=== PATIENT | male | born 1950 | race African-American/Black ===

== ENCOUNTER 2022-02-26 14:53 | Inpatient (IN) | payer OTHER ==
[~2022-02-26] VITALS: Ht 175.3 cm; Wt 66.7 kg
[2022-02-26] MEDS ORDERED: ACETAMINOPHEN 650 MG SUPP RC ONE (14:58)
[2022-02-26] MEDS ORDERED: NACL 0.9% 500 ML IV SCH (15:10)
[2022-02-26 15:11] VITALS: BP 119/72
[2022-02-26] MEDS ORDERED: ALBUTEROL SULFATE/IPRATROPIU 3 ML SOL IH ONE (15:25)
[2022-02-26] MEDS ORDERED: methylPREDNISolone SS 125 MG/2 ML VIAL IVP ONE (15:25)
--- NOTE | 2022-02-26 15:50 | NUR ---
ABIDA AND FLU SWABS COLLECTED AND HANDED TO LOCK TENDER
[2022-02-26 15:59] LABS: BASOPHILS % (AUTO) 0.1 % (0.0-2.0); EOSINOPHILS % (AUTO) 0.3 % (0.0-4.0); HEMATOCRIT 34.2 % (36-52); HEMOGLOBIN 10.5 g/dL (12.0-18.0); LYMPHOCYTES # (AUTO) 0.4 K/uL (2.0-11.5); LYMPHOCYTES % (AUTO) 9.1 % (20.5-51.1); MEAN CORPUSCULAR HEMOGLOBIN 30 pg (27-31); MEAN CORPUSCULAR HGB CONC 31 g/dL (33-37); MEAN CORPUSCULAR VOLUME 95.8 fL (80-94); MONOCYTES % (AUTO) 0.4 % (1.7-9.3); NEUTROPHILS # (AUTO) 3.5 K/uL (1.8-7.7); NEUTROPHILS % (AUTO) 90.1 % (42.2-75.2); PLATELET COUNT (AUTO) 149 K/uL (140-450); RED BLOOD CELL COUNT(AUTO) 3.57 MIL/uL (4.20-6.10); RED CELL DISTRIBUTION WIDTH 16.6 % (11.6-13.7); WHITE BLOOD COUNT (AUTO) 3.9 K/uL (4.8-10.8)
[2022-02-26 16:21] LABS: ALBUMIN 2.2 g/dL (3.4-5.0); ASPARTATE AMINOTRANSFERASE 50 U/L (15-37); CARBON DIOXIDE 24.2 mmol/L (21-32); CREATININE 2.9 mg/dL (0.6-1.3); GLUCOSE 90 mg/dL (74-106); TOTAL BILIRUBIN 0.7 mg/dL (0.0-1.0); UREA NITROGEN, BLOOD 46 mg/dL (7-18)
[2022-02-26 16:23] LABS: APPEARANCE,URINE SL CLOUDY (CLEAR); BILIRUBIN,URINE NEGATIVE (NEGATIVE); BLOOD, URINE 3+ (NEGATIVE); COLOR,URINE ORANGE (YELLOW); LEUKOCYTE ESTERASE ,URINE 3+ (NEGATIVE); NITRITE, URINE NEGATIVE (NEGATIVE); UGLUCOSE NEGATIVE (NEGATIVE)
[2022-02-26 16:25] LABS: PROTHROMBIN TIME 13.5 secs (10.8-13.4)
[2022-02-26 16:38] LABS: RBC,URINE 20-50 /HPF (0-5)
[2022-02-26] MEDS ORDERED: PIPERACILLIN/TAZOBACTAM 3.375 GM in DEXTROSE 5% 50 ML IV ONE (16:45)
[2022-02-26] MEDS ORDERED: VANCOMYCIN 1,000 MG in DEXTROSE 5% 250 ML IV ONE (16:45)
--- NOTE | 2022-02-26 16:45 | NUR ---
PER DR. ORIANA ALMEIDA TO NOT BE CHANGED
[2022-02-26 16:51] LABS: CHLORIDE 119 mmol/L (98-107); POTASSIUM 3.4 mmol/L (3.5-5.1)
[2022-02-26 16:53] LABS: ANION GAP 22.2 (8-16); SODIUM SERUM 162 mmol/L (136-145)
[2022-02-26] MEDS ORDERED: PIPERACILLIN/TAZOBACTAM 3.375 GM VIAL IV ONE (16:55)
--- NOTE | 2022-02-26 17:30 | NUR ---
71/M ABI FROM [facility]. PER EMS STAFF CALLED 911 STATING PATIENT SOB, STATING 80% ON ROOM AIR. PER EMS PATIENT PLACED ON 10L NON REBREATHER BRINGING O2 SATS TO 98%. PATIENT ON ROOM AIR AT BASELINE, UPON ARRIVAL PATIENT PLACED ON 4L NC, O2 96%.
[2022-02-26] MEDS ORDERED: VANCOMYCIN 1,000 MG VIAL ONE (17:32)
[2022-02-26] MEDS ORDERED: MEDI30SO PO (18:02)
[2022-02-26] MEDS ORDERED: [UNRECOGNIZED DRUG - CODE] (18:02)
[2022-02-26] MEDS ORDERED: CHOL1POW67 (18:02)
[2022-02-26] MEDS ORDERED: L. A1TAB16 PO (18:02)
[2022-02-26] MEDS ORDERED: SENN-3 PO (18:02)
[2022-02-26] MEDS ORDERED: ASCO500T95 PO (18:02)
[2022-02-26] MEDS ORDERED: ATOR40TA PO (18:02)
[2022-02-26] MEDS ORDERED: MIRABULK PO (18:02)
[2022-02-26] MEDS ORDERED: ALBU3SOL83 IH (18:02)
[2022-02-26] MEDS ORDERED: ASPI-1749 PO (18:02)
[2022-02-26] MEDS ORDERED: MULT-2611 PO (18:02)
[2022-02-26] MEDS ORDERED: VITB12 PO (18:02)
[2022-02-26] MEDS ORDERED: ACET-10509 PO (18:02)
--- NOTE | 2022-02-26 19:00 | NUR ---
PT TRANSPORTED FROM ER TO MST UNIT TO BED 123B ON [facility]. PT IS NONVERBAL. PT IS CONTRACTED ON ALL EXTREMITIES. PT IS ON 4L NC PT IS SATING 96%. PT HAS RIGHT AC 20 GAUGE SALINE LOCK. PT HAS WOUND ON RIGHT FOOT.
--- NOTE | 2022-02-26 19:00 | NUR ---
Patient will be admitted to care of DR. SHIELDS. Admited to TELE. Will go to room 123B. Belongings list completed. Report to TAHIR.
--- NOTE | 2022-02-26 19:18 | NUR ---
Note dipak in EDM - 02/26/22 at 1919 by BECKIE Patient will be admitted to care of DR. SHIELDS. Admited to TELE. Will go to room 123B. Belongings list completed. Report to TAHIR.
[2022-02-26 20:00] VITALS: BP 121/61
--- NOTE | 2022-02-26 23:45 | NUR ---
PT WAS CLEANED AND CHANGED. PT HAD SMALL BM.
[2022-02-27] VITALS: BP 127/67
[2022-02-27] MEDS ORDERED: NACL 0.9% 1,000 ML IV SCH (02:00)
[2022-02-27] MEDS ORDERED: VANCOMYCIN PER PHARMACY MC PRN (02:00)
[2022-02-27] MEDS ORDERED: HYDROcodone/APAP 5/325 MG 1 TAB TAB PO PRN (02:10)
--- NOTE | 2022-02-27 02:21 | NUR ---
DOCTOR PUT IN NEW ORDERS AND IVF STARTED AT 50 CC/HR.
[2022-02-27 04:00] VITALS: BP 140/65
[2022-02-27] MEDS ORDERED: PIPERACILLIN/TAZOBACTAM 2.25 GM VIAL IV ONE (04:35)
[2022-02-27] MEDS: PIPERACILLIN/TAZOBACTAM 2.25 GM in DEXTROSE 5% 50 ML IV SCH ×4 (04:41→21:44)
--- NOTE | 2022-02-27 04:45 | NUR ---
SCHEDULE ZOSYN GIVEN. NO ADVERSE REACTION NOTED. WILL CONTINUE TO MONITOR THE PT.
[2022-02-27] MEDS ORDERED: PIPERACILLIN/TAZOBACTAM 3.375 GM in DEXTROSE 5% 50 ML IV SCH (05:00)
[2022-02-27 05:33] LABS: BASOPHILS % (AUTO) 0.1 % (0.0-2.0); HEMATOCRIT 30.9 % (36-52); HEMOGLOBIN 9.7 g/dL (12.0-18.0); LYMPHOCYTES # (AUTO) 0.9 K/uL (2.0-11.5); LYMPHOCYTES % (AUTO) 3.7 % (20.5-51.1); MEAN CORPUSCULAR HEMOGLOBIN 29 pg (27-31); MEAN CORPUSCULAR HGB CONC 31 g/dL (33-37); MEAN CORPUSCULAR VOLUME 93.2 fL (80-94); MONOCYTES # (AUTO) 0.6 K/uL (0.8-1.0); MONOCYTES % (AUTO) 2.2 % (1.7-9.3); NEUTROPHILS # (AUTO) 23.3 K/uL (1.8-7.7); PLATELET COUNT (AUTO) 137 K/uL (140-450); RED BLOOD CELL COUNT(AUTO) 3.32 MIL/uL (4.20-6.10); RED CELL DISTRIBUTION WIDTH 15.4 % (11.6-13.7); WHITE BLOOD COUNT (AUTO) 24.8 K/uL (4.8-10.8)
[2022-02-27 05:39] LABS: ANION GAP 15.1 (8-16); CARBON DIOXIDE 28.7 mmol/L (21-32); CHLORIDE 122 mmol/L (98-107); CREATININE 2.6 mg/dL (0.6-1.3); GLUCOSE 150 mg/dL (74-106); POTASSIUM 3.8 mmol/L (3.5-5.1); UREA NITROGEN, BLOOD 53 mg/dL (7-18)
[2022-02-27 05:42] LABS: SODIUM SERUM 162 mmol/L (136-145)
--- NOTE | 2022-02-27 07:28 | NUR ---
ENDORSED PT TO DAY SHIFT RN ADZ FOR CONTINUITY OF CARE. PT IS STABLE.
[2022-02-27 08:00] VITALS: BP 111/69
--- NOTE | 2022-02-27 09:36 | NUR ---
PATIENT HAS BEEN SCREENED AND CATEGORIZED HIGH NUTRITION RISK. PATIENT WILL BE SEEN WITHIN 1-2 DAYS OF ADMISSION. 02/27/2211/23/22 CONSULT AND REFERRAL RECEIVED FOR WOUNDS/PRESSURE INJURY AND DYSPHAGIA DALIA KNOX RD
[2022-02-27] MEDS: DEXTROSE 5% 1,000 ML IV SCH (11:35)
[2022-02-27 12:00] VITALS: BP 141/70
[2022-02-27] MEDS ORDERED: NACL 0.9% 500 ML IV ONE (12:10)
--- NOTE | 2022-02-27 12:50 | NUR ---
WOUND CARE NOTE: PT. ADMITTED FROM SNF WITH MULTIPLE PRESSURE INJURIES TO BILATERAL FEET. BLE SEVERE CONTRACTURE WITH MULTIPLE SCABS.SKIN WARM TO TOUCH. INCONTINENT BOWEL AND BLADDER. SACRALCOCCYX MOIST, SKIN INTACT, DARK PIGMENTATION POSSIBLE FROM OLD HEALED SCAR. LEFT AND RIGHT TROCHANTERS OLD HEALED INTACT SCARS -LEFT LATERAL FOOT UN-STAGEABLE PRESSURE INJURY 3X4X0.2CM WOUND BED 100% BLACK WITH DENUDED OPEN WOUND BED, MOIST, NO ODOR, JESSICA-WOUND SKIN DARK PURPLE IN COLOR, FURTHER DAMAGE INDICATED. -RIGHT LATERAL FOOT UN-STAGEABLE PRESSURE INJURY 3X3X0.5CM TUNNEL WOUND BED 100% BLACK MOIST TISSUE, MOIST, NO ODOR, JESSICA-WOUND SKIN WHITE MACERATION FURTHER DAMAGE INDICATED. -BILATERAL HEELS BLANCHABLE REDNESS SKIN INTACT RECOMMENDATIONS: -APPLY HYDRAGUARD TO BUTTOCKS /SCROTAL AREA BID AND PRN IF SOILING -CLEANSE RIGHT AND LEFT LATERAL FEET WOUND WITH NS. PAT DRY, APPLY HYDROCOLLOID DRESSING 2X/WEEK ON SATURDAY AND SATURDAY AND PRN IF SOILING, HEEL RAISERS WITH OFFLOADING -APPLY FOAM DRESSING TO SACRALCOCCYX QD AND PRN IF SOILING -POSITIONING: TURN AND REPOSITION PATIENT Q 2H OR SOONER USE PILLOWS TO KEEP BONY PROMINENCES FROM DIRECT CONTACT WITH SURFACES USE REPOSITIONING WEDGES TO PROVIDE 30-DEGREE ANGLE FOR SIDE LYING POSITIONS OFFLOADING OR FOAM DRESSING TO ALL TUBING TO PREVENT MEDICAL DEVICES RELATED PRESSURE INJURY -RE-EVALUATING AND MANAGING INCONTINENCE MONITOR SKIN CONDITION DURING POSITION CHANGE DO NOT MASSAGE REDNESS, BONY PROMINENCES FREQUENT JESSICA-CARE AND PROVIDE BARRIER CREAMS PRN IF SOILING MOISTURE CONTROL BY OFFER BED JJ/URINAL /ABSORBENT PAD TO WICK AND HOLD MOISTURE. MAY OBTAIN ORDER FOR FLEX SEAL, RECTAL BAG OR ALMEIDA CATHETER PER PHYSICIAN ORDER UNLESS OTHERWISE CONTRAINDICATED KEEP SKIN DRY AND PROTECT FROM FRICTION -MANAGE FRICTION/SHEAR/MOBILITY KEEP HOB AT THE LOWEST LEVEL OF ELEVATION NO MORE THAN 30 DEGREES UNLESS OTHERWISE CONTRAINDICATED USE LIFT SHEET OR TRANSFER DEVICE TO MOVE PATIENT AND PREVENT LATERAL SHEER. CONSIDER TRAPEZE IF APPROPRIATE PROTECT HEELS, ELBOWS BONY PROMINENCES WITH SKIN BERRIES OR FOAM DRESSING IF EXPOSED TO FRICTION OFFLOAD BILATERAL HEELS BY PLACING PILLOWS UNDER CALVES AT ALL TIMES, UNLESS OTHERWISE CONTRAINDICATED -PRESSURE REDISTRIBUTION SURFACE THERAPY PUNEET ISOFLEX JOEL MATTRESS -NUTRITION: PLEASE FOLLOW RD RECOMMENDATIONS AND OFFER NUTRITION SUPPLEMENTS IF ORDERED.
[2022-02-27] MEDS ORDERED: HYDROCOLLOID DRESSING TP PRN (14:50)
--- NOTE | 2022-02-27 15:08 | NUR ---
DC PLANNING OUTREACHED TO [facility] TO GATHER COLLATERAL INFORMATION, SPOKE WITH QUINN BRODERICK. MEGGAN OCONNOR PATIENT IS IN RETIREMENT CARE W/ FACILITY, ADMISSION DATE; 06/21/21. PT IS REPORTED TO BE BEDBOUND AND TOTAL CARE AT FACILITY HOWEVER, OCCASIONALLY UTILIZES WC. MEGGAN OCONNOR PT IS NON VERBAL. MEGGAN OCONNOR PT HAS ACTIVE FAMILY INVOLVEMENT AND REPORTS THAT HIS DAUGHTER VISITS AND VIDEO CALLS WITH PT FREQUENTLY. PT FAMILY IS AWARE PT IS CURRENTLY ADMITTED TO [facility]. MEGGAN OCONNOR PT IS FOLLOWED BY DR. FELICIANO AT FACILITY. MEGGAN OCONNOR CA PLAN IS FOR PT TO RETURN TO [facility], WHEN MEDIALLY STABLE. Addendum: 02/27/22 at 1508 by Jen COVINGTON Amended: Links added.
--- NOTE | 2022-02-27 15:53 | NUR ---
02/27/22 RD INITIAL ASSESSMENT COMPLETED PLEASE REFER TO NUTRITION ASSESSMENT UNDER CARE ACTIVITY FOR ESTIMATED NUTRITIONAL NEEDS. 1. RECOMMEND ADDING RENAL RESTRICTIONS TO CURRENT CARDIAC, PUREE DIET WITH HONEY THICK LIQUIDS 2. MONITOR PO INTAKE -IF <75%, RECOMMEND NEPRO BID FOR NUTRITION SUPPORT 3. RD TO FOLLOW-UP 7 DAYS, LOW RISK DALIA KNOX RD
[2022-02-27 16:00] VITALS: BP 110/65
[2022-02-27] MEDS ORDERED: HYDROCOLLOID DRESSING TP SCH ×2 (16:00)
[2022-02-27] MEDS ORDERED: ALBUTEROL SULFATE/IPRATROPIU 3 ML SOL IH SCH (16:55)
[2022-02-27] MEDS ORDERED: SENNA 8.6 MG TAB PO SCH (16:55)
--- NOTE | 2022-02-27 19:10 | NUR ---
RECEIVED REPORT FROM DAY NURSE. PATIENT LYING ON THE BED ON HIS RIGHT SIDE, FLACC 0, ON O2 @3LPM NC, NO SIGNS OF DISTRESS NOTED. IV ACCESS SITE ON RIGHT AC G20, FLUSH WITHOUT DIFFICULTY. SAFETY PRECAUTIONS IN PLACE. WILL CONTINUE TO MONITOR PATIENT.
[2022-02-27 20:00] VITALS: BP 98/56
[2022-02-27] MEDS: ATORVASTATIN 20 MG TAB PO SCH (21:29)
--- NOTE | 2022-02-27 21:35 | NUR ---
DUE MEDICATIONS GIVEN ORDERED, WILL CONTINUE TO MONITOR THE PATIENT.
--- NOTE | 2022-02-27 23:09 | NUR ---
PATIENT IS ASLEEP, HOB ELEVATED, ON O2 @3LPM NC, BREATHING EVEN AND NON LABORED, SAFETY PRECAUTIONS MAINTAINED, CALL LIGHT WITHIN REACH.
[2022-02-28] VITALS: BP 102/64
[2022-02-28] MEDS: DEXTROSE 5% 1,000 ML IV SCH ×2 (00:05→13:21)
--- NOTE | 2022-02-28 00:33 | NUR ---
PATIENT IS ASLEEP. VITALS T 98.0, HR 82, BP 102/64, RESP 19, O2 SAT 96% ON 3LPM NC. NO S/S OF PAIN/DISCOMFORT NOTED, NO S/S OF DISTRESS NOTED. CALL LIGHT WITHIN REACH. WILL CONTINUE TO MONITOR PATIENT.
[2022-02-28] MEDS: HYDRAGUARD CREAM TP SCH ×2 (01:49→13:21)
--- NOTE | 2022-02-28 03:06 | NUR ---
PT WAS REPOSITION AND WOUND DRESSING CHANGED.
[2022-02-28 04:00] VITALS: BP 100/66
[2022-02-28] MEDS ORDERED: MEROPENEM 500 MG VIAL IV ONE (04:27)
[2022-02-28] MEDS: MEROPENEM 500 MG in NACL 0.9% 50 ML IV SCH ×3 (04:32→20:25)
[2022-02-28 06:02] LABS: BASOPHILS % (AUTO) 0.1 % (0.0-2.0); EOSINOPHILS % (AUTO) 0.1 % (0.0-4.0); HEMATOCRIT 27.8 % (36-52); HEMOGLOBIN 8.8 g/dL (12.0-18.0); LYMPHOCYTES # (AUTO) 1.7 K/uL (2.0-11.5); LYMPHOCYTES % (AUTO) 8.4 % (20.5-51.1); MEAN CORPUSCULAR HEMOGLOBIN 29 pg (27-31); MEAN CORPUSCULAR HGB CONC 32 g/dL (33-37); MEAN CORPUSCULAR VOLUME 93.2 fL (80-94); MONOCYTES # (AUTO) 0.9 K/uL (0.8-1.0); MONOCYTES % (AUTO) 4.6 % (1.7-9.3); NEUTROPHILS % (AUTO) 86.8 % (42.2-75.2); PLATELET COUNT (AUTO) 125 K/uL (140-450); RED BLOOD CELL COUNT(AUTO) 2.98 MIL/uL (4.20-6.10); RED CELL DISTRIBUTION WIDTH 15.4 % (11.6-13.7); WHITE BLOOD COUNT (AUTO) 19.6 K/uL (4.8-10.8)
[2022-02-28 06:23] LABS: ANION GAP -8.6 (8-16); CARBON DIOXIDE 27.5 mmol/L (21-32); CHLORIDE 122 mmol/L (98-107); GLUCOSE 104 mg/dL (74-106); SODIUM SERUM 138 mmol/L (136-145)
[2022-02-28 06:29] LABS: MAGNESIUM 2.5 mg/dL (1.8-2.4); PHOSPHORUS 2.9 mg/dL (2.5-4.9)
[2022-02-28 06:34] LABS: POTASSIUM 2.9 mmol/L (3.5-5.1)
[2022-02-28 06:35] LABS: UREA NITROGEN, BLOOD 63 mg/dL (7-18)
[2022-02-28] MEDS ORDERED: KCL 20 MEQ/WATER INJ PREMIX 200 ML IV PRN (06:50)
--- NOTE | 2022-02-28 07:18 | NUR ---
ENDORSED PATIENT TO DAY NURSE FOR CONTINUITY OF CARE. PATIENT IS STABLE.
[2022-02-28 08:00] VITALS: BP 108/62
--- NOTE | 2022-02-28 08:00 | NUR ---
RECEIVED PATIENT IN BED, NON VERBAL. NOT IN ANY FORM OF DISTRESS. ASSESSMENT DONE AND DOCUMENTED. WILL CONTINUE TO MONITOR.
[2022-02-28] MEDS: ASPIRIN 81 MG TAB.CHEW PO SCH (09:47)
[2022-02-28] MEDS: POLYETHYLENE GLYCOL 17 GM/PKT PO SCH (09:47)
[2022-02-28] MEDS: VITAMIN A 10,000 IU CAPLF PO SCH (09:47)
[2022-02-28] MEDS: CYANOCOBALAMIN 100 MCG TAB PO SCH (09:47)
[2022-02-28 11:04] LABS: ANION GAP 12.2 (8-16); CARBON DIOXIDE 29.1 mmol/L (21-32); CHLORIDE 124 mmol/L (98-107); CREATININE 1.7 mg/dL (0.6-1.3); GLUCOSE 102 mg/dL (74-106); POTASSIUM 3.3 mmol/L (3.5-5.1)
[2022-02-28 11:53] LABS: SODIUM SERUM 162 mmol/L (136-145); UREA NITROGEN, BLOOD 61 mg/dL (7-18)
[2022-02-28 12:00] VITALS: BP 104/64
[2022-02-28] MEDS: ALBUTEROL SULFATE/IPRATROPIU 3 ML SOL IH SCH ×2 (12:18→14:10)
--- NOTE | 2022-02-28 12:18 | NUR ---
POST HHN THERAPY; PATIENT AWAKE UNABLE TO FOLLOW COMMANDS FOR INCENTIVE SPIROMETRY THERAPY
[2022-02-28 16:00] VITALS: BP 108/55
--- NOTE | 2022-02-28 18:15 | NUR ---
PATIENT REMAINS STABLE THROUGHOUT THE SHIFT. DR. KEE HERE AND SEEN THE PATIENT AND MADE AWARE OF BL;OOD CULTURE RESULT. ALL NEEDS ANTICIPATED AND MET.
--- NOTE | 2022-02-28 19:20 | NUR ---
Received pt in bed awake. no s/sx of pain nor discomfort. no acute respiratory distress noted. skin warm and dry to touch. ivf infusing well as ordered. bed in the safety precaution in place, call light in reach.
[2022-02-28 20:00] VITALS: BP 123/65
[2022-02-28] MEDS: ATORVASTATIN 20 MG TAB PO SCH (20:29)
--- NOTE | 2022-02-28 21:15 | NUR ---
MOVED PT TO RM 110 A.
--- NOTE | 2022-02-28 22:00 | NUR ---
Repositioned patient. head of the bed elevated.
--- NOTE | 2022-02-28 23:55 | NUR ---
TEMP-100.4, CALL PLACED TO DR. HERNANDEZ, AWAITING CALL BACK. STARTED COOLING MEASURES.
[2022-03-01] VITALS: BP 121/65
[2022-03-01] MEDS ORDERED: ACETAMINOPHEN 325 MG TAB PO PRN (00:25)
--- NOTE | 2022-03-01 00:29 | NUR ---
NEW ORDER GIVEN BY DR. HERNANDEZ AND WILL BE CARRIED OUT.
[2022-03-01] MEDS: DEXTROSE 5% 1,000 ML IV SCH ×2 (00:41→13:37)
[2022-03-01] MEDS: HYDRAGUARD CREAM TP SCH ×2 (00:41→13:37)
--- NOTE | 2022-03-01 02:12 | NUR ---
CURRENT TEMP-98.9. BREATHING EVEN AND UNLABORED.
[2022-03-01 04:00] VITALS: BP 97/52
--- NOTE | 2022-03-01 04:30 | NUR ---
AM CARE RENDERED. HAD A LARGE SOFT BROWN STOOL. REPOSITIONED PT.
[2022-03-01] MEDS: MEROPENEM 500 MG in NACL 0.9% 50 ML IV SCH (05:00)
--- NOTE | 2022-03-01 06:20 | NUR ---
PATIENT IS ASLEEP. ALL NEEDS ATTENDED TO. NO S/SX OF DISTRESS NOTED. SAFETY PRECAUTIONS MAINTAINED DURING THE SHIFT. CALL LIGHT IN REACH.
[2022-03-01] MEDS: ALBUTEROL SULFATE/IPRATROPIU 3 ML SOL IH SCH ×3 (07:27→20:10)
[2022-03-01 07:29] LABS: BASOPHILS % (AUTO) 0.2 % (0.0-2.0); EOSINOPHILS % (AUTO) 0.1 % (0.0-4.0); HEMATOCRIT 28.5 % (36-52); HEMOGLOBIN 8.9 g/dL (12.0-18.0); LYMPHOCYTES # (AUTO) 1.7 K/uL (2.0-11.5); LYMPHOCYTES % (AUTO) 7.7 % (20.5-51.1); MEAN CORPUSCULAR HEMOGLOBIN 29 pg (27-31); MEAN CORPUSCULAR HGB CONC 31 g/dL (33-37); MEAN CORPUSCULAR VOLUME 93.5 fL (80-94); MONOCYTES # (AUTO) 0.9 K/uL (0.8-1.0); MONOCYTES % (AUTO) 4.3 % (1.7-9.3); NEUTROPHILS # (AUTO) 18.9 K/uL (1.8-7.7); NEUTROPHILS % (AUTO) 87.7 % (42.2-75.2); PLATELET COUNT (AUTO) 107 K/uL (140-450); RED BLOOD CELL COUNT(AUTO) 3.05 MIL/uL (4.20-6.10); RED CELL DISTRIBUTION WIDTH 14.9 % (11.6-13.7); WHITE BLOOD COUNT (AUTO) 21.5 K/uL (4.8-10.8)
[2022-03-01 07:47] LABS: ANION GAP 10.8 (8-16); CARBON DIOXIDE 27.3 mmol/L (21-32); CHLORIDE 122 mmol/L (98-107); CREATININE 1.9 mg/dL (0.6-1.3); GLUCOSE 111 mg/dL (74-106); POTASSIUM 4.1 mmol/L (3.5-5.1); UREA NITROGEN, BLOOD 58 mg/dL (7-18)
[2022-03-01 08:00] VITALS: BP 98/59
[2022-03-01 08:02] LABS: MAGNESIUM 2.5 mg/dL (1.8-2.4); PHOSPHORUS 3.1 mg/dL (2.5-4.9)
[2022-03-01 08:04] LABS: SODIUM SERUM 156 mmol/L (136-145)
[2022-03-01] MEDS: VITAMIN A 10,000 IU CAPLF PO SCH (09:48)
[2022-03-01] MEDS: ASPIRIN 81 MG TAB.CHEW PO SCH (09:49)
[2022-03-01] MEDS: POLYETHYLENE GLYCOL 17 GM/PKT PO SCH (09:49)
[2022-03-01] MEDS: CYANOCOBALAMIN 100 MCG TAB PO SCH (09:51)
--- NOTE | 2022-03-01 10:00 | NUR ---
Dr. Hsieh here and seen the patient. aware of Na level elevated. no orders at this time. patient continue on IV antibiotic.
[2022-03-01 12:00] VITALS: BP 93/50
[2022-03-01] MEDS: MEROPENEM 500 MG in NACL 0.9% 100 ML IV SCH ×2 (13:37→20:52)
[2022-03-01 16:00] VITALS: BP 92/46
--- NOTE | 2022-03-01 18:15 | NUR ---
pateient remains stable throughout the shift. turned and repositioned every 2 hours. all needs anticipated and met.
--- NOTE | 2022-03-01 19:30 | NUR ---
RECEIVED PATIENT IN BED ASLEEP. NO S/SX OF PAIN NOR DISCOMFORT. NO ACUTE RESPIRATORY DISTRESS NOTED. SKIN WARM AND DRY TO TOUCH. IVF INFUSING WELL ORDERED. SAFETY PRECAUTIONS IN PLACE, CALL LIGHT IN REACH.
[2022-03-01 20:00] VITALS: BP 108/42
[2022-03-01] MEDS: ATORVASTATIN 20 MG TAB PO SCH (20:54)
--- NOTE | 2022-03-01 22:00 | NUR ---
REPOSITIONED PATIENT. HEAD OF THE BED ELEVATED. CALL LIGHT PLACED WITHIN REACH.
[2022-03-02] VITALS: BP 108/44
[2022-03-02] MEDS: HYDRAGUARD CREAM TP SCH ×2 (00:23→13:53)
[2022-03-02] MEDS: ALBUTEROL SULFATE/IPRATROPIU 3 ML SOL IH SCH ×3 (01:50→12:21)
[2022-03-02] MEDS: DEXTROSE 5% 1,000 ML IV SCH ×2 (02:19→14:35)
[2022-03-02 04:00] VITALS: BP 102/45
[2022-03-02] MEDS: MEROPENEM 500 MG in NACL 0.9% 100 ML IV SCH ×3 (04:11→20:39)
--- NOTE | 2022-03-02 04:54 | NUR ---
AM CARE DONE. MADE COMFORTABLE IN BED. HEAD OF THE BED ELEVATED. CALL LIGHT IN REACH.
--- NOTE | 2022-03-02 06:35 | NUR ---
PATIENT IS ASLEEP. NO DISTRESS NOTED. ALL NEEDS ATTENDED TO. SAFETY PRECAUTIONS MAINTAINED DURING THE SHIFT, CALL LIGHT REMAINED WITHIN REACH.
[2022-03-02 07:29] LABS: BASOPHILS % (AUTO) 0.2 % (0.0-2.0); EOSINOPHILS # (AUTO) 0.4 K/uL (0-0.4); EOSINOPHILS % (AUTO) 3.9 % (0.0-4.0); HEMATOCRIT 26.8 % (36-52); HEMOGLOBIN 8.5 g/dL (12.0-18.0); LYMPHOCYTES # (AUTO) 1.9 K/uL (2.0-11.5); LYMPHOCYTES % (AUTO) 16.8 % (20.5-51.1); MEAN CORPUSCULAR HEMOGLOBIN 30 pg (27-31); MEAN CORPUSCULAR HGB CONC 32 g/dL (33-37); MEAN CORPUSCULAR VOLUME 93.3 fL (80-94); MONOCYTES # (AUTO) 0.6 K/uL (0.8-1.0); MONOCYTES % (AUTO) 5.2 % (1.7-9.3); NEUTROPHILS # (AUTO) 8.4 K/uL (1.8-7.7); NEUTROPHILS % (AUTO) 73.9 % (42.2-75.2); PLATELET COUNT (AUTO) 89 K/uL (140-450); RED BLOOD CELL COUNT(AUTO) 2.87 MIL/uL (4.20-6.10); RED CELL DISTRIBUTION WIDTH 14.8 % (11.6-13.7); WHITE BLOOD COUNT (AUTO) 11.4 K/uL (4.8-10.8)
[2022-03-02 07:46] LABS: ANION GAP 8.5 (8-16); CARBON DIOXIDE 29.6 mmol/L (21-32); CHLORIDE 121 mmol/L (98-107); GLUCOSE 94 mg/dL (74-106); POTASSIUM 3.1 mmol/L (3.5-5.1); UREA NITROGEN, BLOOD 32 mg/dL (7-18)
[2022-03-02 08:00] VITALS: BP 108/74
[2022-03-02 08:13] LABS: SODIUM SERUM 156 mmol/L (136-145)
[2022-03-02] MEDS ORDERED: ACETAMINOPHEN EXTRA STRENGTH 500 MG TAB PO PRN (08:25)
[2022-03-02 08:56] LABS: MAGNESIUM 2.4 mg/dL (1.8-2.4); PHOSPHORUS 3.1 mg/dL (2.5-4.9)
[2022-03-02] MEDS: CYANOCOBALAMIN 100 MCG TAB PO SCH (09:59)
[2022-03-02] MEDS: POLYETHYLENE GLYCOL 17 GM/PKT PO SCH (09:59)
[2022-03-02] MEDS: VITAMIN A 10,000 IU CAPLF PO SCH (09:59)
[2022-03-02] MEDS: ASPIRIN 81 MG TAB.CHEW PO SCH (09:59)
[2022-03-02 12:00] VITALS: BP 109/65
[2022-03-02 16:00] VITALS: BP 92/46
--- NOTE | 2022-03-02 18:52 | NUR ---
Patient remains stable throughout the shift. turned and repositioned every 2 hours. safety measures maintained. all needs anticipated and met.
--- NOTE | 2022-03-02 19:10 | NUR ---
Received pt in bed asleep. no s/sx of pain nor discomfort. no respiratory distress noted. skin warm and dry to touch. ivf infusing well as ordered. safety precaution in place, call light in reach.
[2022-03-02 20:00] VITALS: BP 110/61
[2022-03-02] MEDS: ATORVASTATIN 20 MG TAB PO SCH (20:39)
--- NOTE | 2022-03-02 20:40 | NUR ---
plt-89, held heparin.
--- NOTE | 2022-03-02 21:50 | NUR ---
Repositioned patient. head of the bed elevated. call light in reach.
--- NOTE | 2022-03-02 22:48 | NUR ---
8- pt had 16 beats of vtach, pt asleep. bp-106/55. no s/sx of pain nor discomfort. 2247-dr. smalls made aware. per md monitor patient.
--- NOTE | 2022-03-03 | NUR ---
Patient is asleep. No s/sx of pain nor discomfort. call light in reach.
[2022-03-03 00:13] VITALS: BP 107/48
[2022-03-03] MEDS: DEXTROSE 5% 1,000 ML IV SCH ×2 (00:24→15:35)
[2022-03-03] MEDS: HYDRAGUARD CREAM TP SCH ×2 (01:16→13:00)
--- NOTE | 2022-03-03 02:00 | NUR ---
patient is asleep. no acute respiratory distress. call light within reach.
[2022-03-03 04:00] VITALS: BP 113/53
--- NOTE | 2022-03-03 04:30 | NUR ---
am care rendered. made comfortable in bed.
[2022-03-03] MEDS: MEROPENEM 500 MG in NACL 0.9% 100 ML IV SCH (04:44)
[2022-03-03] MEDS: ALBUTEROL SULFATE/IPRATROPIU 3 ML SOL IH SCH ×5 (05:15→20:10)
--- NOTE | 2022-03-03 06:18 | NUR ---
Patient is asleep. No distress noted. all needs attended to. Safety precautions in place, call light in reach.
[2022-03-03 08:00] VITALS: BP 125/63
[2022-03-03] MEDS: VITAMIN A 10,000 IU CAPLF PO SCH (09:00)
[2022-03-03] MEDS: POLYETHYLENE GLYCOL 17 GM/PKT PO SCH (09:00)
[2022-03-03] MEDS: ASPIRIN 81 MG TAB.CHEW PO SCH (09:00)
[2022-03-03] MEDS: CYANOCOBALAMIN 100 MCG TAB PO SCH (09:00)
[2022-03-03 09:11] LABS: BASOPHILS % (AUTO) 0.2 % (0.0-2.0); EOSINOPHILS # (AUTO) 0.4 K/uL (0-0.4); EOSINOPHILS % (AUTO) 5.6 % (0.0-4.0); HEMATOCRIT 26.5 % (36-52); HEMOGLOBIN 8.6 g/dL (12.0-18.0); LYMPHOCYTES # (AUTO) 1.8 K/uL (2.0-11.5); LYMPHOCYTES % (AUTO) 26.4 % (20.5-51.1); MEAN CORPUSCULAR HEMOGLOBIN 30 pg (27-31); MEAN CORPUSCULAR HGB CONC 33 g/dL (33-37); MEAN CORPUSCULAR VOLUME 91.2 fL (80-94); MONOCYTES # (AUTO) 0.4 K/uL (0.8-1.0); MONOCYTES % (AUTO) 5.3 % (1.7-9.3); NEUTROPHILS # (AUTO) 4.3 K/uL (1.8-7.7); NEUTROPHILS % (AUTO) 62.5 % (42.2-75.2); PLATELET COUNT (AUTO) 117 K/uL (140-450); RED BLOOD CELL COUNT(AUTO) 2.91 MIL/uL (4.20-6.10); RED CELL DISTRIBUTION WIDTH 14.2 % (11.6-13.7); WHITE BLOOD COUNT (AUTO) 6.8 K/uL (4.8-10.8)
[2022-03-03 09:14] LABS: CHLORIDE 115 mmol/L (98-107); CREATININE 0.9 mg/dL (0.6-1.3); GLUCOSE 89 mg/dL (74-106); POTASSIUM 3.1 mmol/L (3.5-5.1); SODIUM SERUM 151 mmol/L (136-145); UREA NITROGEN, BLOOD 16 mg/dL (7-18)
[2022-03-03 09:20] LABS: PHOSPHORUS 2.7 mg/dL (2.5-4.9)
[2022-03-03 09:38] LABS: ANION GAP 11.1 (8-16)
--- NOTE | 2022-03-03 09:42 | NUR ---
@935 PT WAS WAS PLACED ON CPAP PRESSURE SUPPORT OF 12 PEEP 5. PT IS TOLERATING WELL. BACK UP SETTINGS ARE SET TO ORIGINAL VENT SETTINGS. RN AWARE PT IS ON CPAP AND TOLERATING WELL. WILL CONTINUE TO MONITOR. HR 98 SPO2 100% Addendum: 03/03/22 at 0947 by Allie Guan RT DISREGARD THIS NOTE. WRONG DATA, THIS IS FOR DIFFERENT PT.
[2022-03-03 12:00] VITALS: BP 116/57
[2022-03-03 16:00] VITALS: BP 121/72
--- NOTE | 2022-03-03 19:10 | NUR ---
RECEIVED REPORT FROM DAY NURSE FOR CONTINUITY OF CARE. PATIENT IS LYING ON THE BED, NO SIGNS OF PAIN/ DISTRESS NOTED. RESIDENT IS ON O2 @3LPM NC, HAS IV ACCESS SITE ON LEFT HAND G24, FLUSH WITHOUT DIFFICULTY. CALL LIGHT WITHIN REACH.
[2022-03-03 20:00] VITALS: BP 125/75
[2022-03-03] MEDS: ATORVASTATIN 20 MG TAB PO SCH (20:26)
--- NOTE | 2022-03-03 20:30 | NUR ---
DUE MEDICATIONS GIVEN ORDERED, NO ADVERSE REACTIONS NOTED. WILL CONTINUE TO MONITOR THE PATIENT
--- NOTE | 2022-03-03 22:51 | NUR ---
CHECKED ON PATIENT. PATIENT IS ASLEEP, HEAD OF BED ELEVATED, NO SIGNS OF DISTRESS NOTED, ON O2 @3LPM NC, NO SIGNS OF PAIN/DISCOMFORT NOTED. PATIENT HAS BILATERAL HEEL PROTECTOR IN PLACE. SAFETY PRECAUTIONS IN PLACE.
[2022-03-04] VITALS: BP 134/65
--- NOTE | 2022-03-04 00:20 | NUR ---
PATIENT'S VITALS T 97.7, P 70, BP 134/65, RESP 22 AND O2 SAT 100% ON 3LPM NC. CALL LIGHT WITHIN REACH.
[2022-03-04] MEDS: ALBUTEROL SULFATE/IPRATROPIU 3 ML SOL IH SCH ×4 (01:00→20:30)
[2022-03-04] MEDS: HYDRAGUARD CREAM TP SCH ×3 (01:00→13:00)
--- NOTE | 2022-03-04 01:10 | NUR ---
DRESSING CHANGED ON WOUND(ULCER) ON RIGHT FOOT( LATERAL SIDE) OUTER. WILL CONTINUE TO MONITOR THE PATIENT
[2022-03-04] MEDS: DEXTROSE 5% 1,000 ML IV SCH ×3 (03:02→19:01)
[2022-03-04 04:00] VITALS: BP 114/57
--- NOTE | 2022-03-04 04:45 | NUR ---
BEDSIDE CARE DONE, PATIENT HAS MEDIUM BM, PATIENT REPOSITIONED. PATIENT ON O2 @3LPM NC, BREATHING EVEN AND NON LABORED, NO SIGNS OF PAIN NOTED. CALL LIGHT WITHIN REACH. WILL CONTINUE TO MONITOR THE PATIENT.
--- NOTE | 2022-03-04 06:05 | NUR ---
PATIENT IS ASLEEP, BREATHING EVEN AND NON LABORED ON 3LPM NC. NEEDS MET THROUGHOUT THE SHIFT. CALL LIGHT WITHIN REACH.
--- NOTE | 2022-03-04 07:10 | NUR ---
ENDORSED PATIENT TO DAY NURSE FOR CONTINUITY OF CARE. PATIENT IS STABLE.
[2022-03-04 08:00] VITALS: BP 122/65
--- NOTE | 2022-03-04 08:00 | NUR ---
RECEIVED PATIENT IN BED, ASLEEP. NOT IN ANY FORM OF DISTRESS.ASSESSMENT DONE AND DOCUMENTED. REMOVED IV ACCESS TO LEFT HAND DUE TO INFILTRATION. STARTED IV TO R FOREARM PATIENT TOLERATED WELL. WILL CONTINUE TO MONITOR.
[2022-03-04 08:37] LABS: MAGNESIUM 1.8 mg/dL (1.8-2.4); PHOSPHORUS 2.3 mg/dL (2.5-4.9)
[2022-03-04 08:45] LABS: ANION GAP 9.5 (8-16); CARBON DIOXIDE 29.6 mmol/L (21-32); CHLORIDE 114 mmol/L (98-107); CREATININE 0.7 mg/dL (0.6-1.3); GLUCOSE 96 mg/dL (74-106); POTASSIUM 3.1 mmol/L (3.5-5.1); SODIUM SERUM 150 mmol/L (136-145); UREA NITROGEN, BLOOD 13 mg/dL (7-18)
[2022-03-04 08:59] LABS: BASOPHILS % (AUTO) 0.4 % (0.0-2.0); EOSINOPHILS # (AUTO) 0.3 K/uL (0-0.4); EOSINOPHILS % (AUTO) 6.1 % (0.0-4.0); HEMATOCRIT 29.3 % (36-52); HEMOGLOBIN 9.4 g/dL (12.0-18.0); LYMPHOCYTES # (AUTO) 1.8 K/uL (2.0-11.5); LYMPHOCYTES % (AUTO) 33.6 % (20.5-51.1); MEAN CORPUSCULAR HEMOGLOBIN 29 pg (27-31); MEAN CORPUSCULAR HGB CONC 32 g/dL (33-37); MEAN CORPUSCULAR VOLUME 91.1 fL (80-94); MONOCYTES # (AUTO) 0.4 K/uL (0.8-1.0); NEUTROPHILS # (AUTO) 2.9 K/uL (1.8-7.7); NEUTROPHILS % (AUTO) 52.9 % (42.2-75.2); PLATELET COUNT (AUTO) 160 K/uL (140-450); RED BLOOD CELL COUNT(AUTO) 3.21 MIL/uL (4.20-6.10); RED CELL DISTRIBUTION WIDTH 14.4 % (11.6-13.7); WHITE BLOOD COUNT (AUTO) 5.4 K/uL (4.8-10.8)
[2022-03-04] MEDS ORDERED: HYDROCOLLOID DRESSING TP SCH (09:00)
[2022-03-04] MEDS: ASPIRIN 81 MG TAB.CHEW PO SCH (09:10)
[2022-03-04] MEDS: VITAMIN A 10,000 IU CAPLF PO SCH (09:11)
[2022-03-04] MEDS: CYANOCOBALAMIN 100 MCG TAB PO SCH (09:11)
[2022-03-04] MEDS: POLYETHYLENE GLYCOL 17 GM/PKT PO SCH (09:11)
[2022-03-04 12:00] VITALS: BP 107/57
[2022-03-04 16:00] VITALS: BP 116/59
--- NOTE | 2022-03-04 19:10 | NUR ---
RECEIVED REPORT FROM DAY NURSE FOR CONTINUITY OF CARE. PATIENT LYING ON THE BED, IN NO SIGNS OF DISTRESS, ON O2 @3LPM NC, HAS IV LINE ON RIGHT FOREARM G20 RUNNING D5 @80ML/HR, LINE FLUSH WITHOUT DIFFICULTY. BED IN LOW HEIGHT AND LOCKED. CALL LIGHT WITHIN REACH.
--- NOTE | 2022-03-04 19:10 | NUR ---
[facility] IN STABLE CONDITION. IV SITE INTACT AND PATENT.
[2022-03-04 20:00] VITALS: BP 133/78
[2022-03-04] MEDS: ATORVASTATIN 20 MG TAB PO SCH (20:09)
--- NOTE | 2022-03-04 20:20 | NUR ---
DUE MEDICATIONS GIVEN ORDERED, NO ADVERSE REACTIONS NOTED, BREATHING EVEN AND NON LABORED. CALL LIGHT WITHIN REACH.WILL CONTINUE TO MONITOR THE PATIENT.
[2022-03-05] VITALS: BP 125/68
--- NOTE | 2022-03-05 00:10 | NUR ---
CHECKED ON PATIENT, NO DISTRESS NOTED, NO SIGNS OF PAIN/DISCOMFORT NOTED. PATIENT HAS ALMEIDA CATHETER, DRAINING LIGHT SOPHIE COLORED URINE, PATIENT HAS BILATERAL HEEL PROTECTOR IN PLACE. VITALS T 98.1, P 71, BP 125/68, RESP 20, O2 98% ON 3LPM NC. WILL CONTINUE TO MONITOR.
[2022-03-05] MEDS: ALBUTEROL SULFATE/IPRATROPIU 3 ML SOL IH SCH ×3 (01:00→13:00)
[2022-03-05] MEDS: HYDRAGUARD CREAM TP SCH ×2 (01:47→13:08)
[2022-03-05 04:00] VITALS: BP 109/53
--- NOTE | 2022-03-05 04:10 | NUR ---
PATIENT IS ASLEEP, BREATHING EVEN AND NON LABORED, ON O2 @3LPM NC, NO SIGNS OF PAIN NOTED. SAFETY PRECAUTIONS IN PLACE. WILL CONTINUE TO MONITOR THE PATIENT.
--- NOTE | 2022-03-05 07:17 | NUR ---
ENDORSED PT TO AUTO INSPECTOR NURSE FOR CONTINUITY OF CARE. ALL NEEDS MET THROUGHOUT SHIFT. PT IS STABLE.
--- NOTE | 2022-03-05 07:30 | NUR ---
RECEIVED REPORT FROM NIGHT NURSE FOR CONTINUITY OF CARE. PATIENT IN BED WITH HOB ELEVATED, IN NO SIGNS OF DISTRESS, ON O2 @3LPM NC, NO S/S OF PAIN. HAS IV LINE ON RIGHT FOREARM G20 RUNNING D5 @80ML/HR, LINE FLUSH WITHOUT DIFFICULTY. BED IN LOW HEIGHT AND LOCKED. CALL LIGHT WITHIN REACH.
[2022-03-05 08:00] VITALS: BP 104/93
[2022-03-05] MEDS: ASPIRIN 81 MG TAB.CHEW PO SCH (08:34)
[2022-03-05] MEDS: VITAMIN A 10,000 IU CAPLF PO SCH (08:34)
[2022-03-05] MEDS: POLYETHYLENE GLYCOL 17 GM/PKT PO SCH (08:34)
[2022-03-05] MEDS: CYANOCOBALAMIN 100 MCG TAB PO SCH (09:07)
[2022-03-05 09:11] LABS: BASOPHILS % (AUTO) 0.4 % (0.0-2.0); EOSINOPHILS # (AUTO) 0.2 K/uL (0-0.4); EOSINOPHILS % (AUTO) 5.2 % (0.0-4.0); HEMATOCRIT 25.5 % (36-52); HEMOGLOBIN 8.3 g/dL (12.0-18.0); LYMPHOCYTES # (AUTO) 1.5 K/uL (2.0-11.5); LYMPHOCYTES % (AUTO) 32.8 % (20.5-51.1); MEAN CORPUSCULAR HEMOGLOBIN 30 pg (27-31); MEAN CORPUSCULAR HGB CONC 33 g/dL (33-37); MEAN CORPUSCULAR VOLUME 91.1 fL (80-94); MONOCYTES # (AUTO) 0.3 K/uL (0.8-1.0); MONOCYTES % (AUTO) 6.6 % (1.7-9.3); NEUTROPHILS # (AUTO) 2.6 K/uL (1.8-7.7); PLATELET COUNT (AUTO) 191 K/uL (140-450); WHITE BLOOD COUNT (AUTO) 4.7 K/uL (4.8-10.8)
[2022-03-05 09:25] LABS: ANION GAP 10.8 (8-16); CARBON DIOXIDE 28.3 mmol/L (21-32); CHLORIDE 109 mmol/L (98-107); CREATININE 0.6 mg/dL (0.6-1.3); GLUCOSE 91 mg/dL (74-106); POTASSIUM 3.1 mmol/L (3.5-5.1); SODIUM SERUM 145 mmol/L (136-145); UREA NITROGEN, BLOOD 9 mg/dL (7-18)
[2022-03-05] MEDS ORDERED: KCL 20 MEQ/WATER INJ PREMIX 200 ML IV ONE (09:45)
[2022-03-05] MEDS ORDERED: CEFT1SOL1 IV (11:31)
[2022-03-05 12:00] VITALS: BP 98/56
[2022-03-05 16:00] VITALS: BP 123/57
--- NOTE | 2022-03-05 16:04 | NUR ---
DC PLANNING: PATIENT HAS A DC ORDER TO RETURN TO [facility] FAXED ALL PAPERWORK . AWAITING FOR BED CM TO FOLLOW Addendum: 03/05/22 at 1655 by Aida Granados RN DC PLANNING: PATIENT HAS A DC ORDER TO RETURN TO [facility] FAXED ALL PAPER WORK SPOKE WITH JAVIER THE ADMIN AND PATIENT CAN GO TO ROOM 117A # TO GIVE REPORT [phone] . ARRANGED TRANSPORT WITH [employer] PERSON TIME BETWEEN 6:00 PM NOTIFIED CELINA KULKARNI CM TO FOLLOW
[2022-03-05] MEDS: DEXTROSE 5% 1,000 ML IV SCH (16:22)
--- NOTE | 2022-03-05 18:08 | NUR ---
[place] [facility] [place]
== END 2022-03-05 18:00 | DRG 698 ==
LOC: MED 14:53 → MTU 17:49
DX: T83.518A Infection and inflammatory reaction due to other urinary catheter, initial encounter (principal); A41.51 Sepsis due to Escherichia coli [E. coli]; J69.0 Pneumonitis due to inhalation of food and vomit; R65.21 Severe sepsis with septic shock; J96.01 Acute respiratory failure with hypoxia; N17.0 Acute kidney failure with tubular necrosis; E87.3 Alkalosis; E87.0 Hyperosmolality and hypernatremia; M62.82 Rhabdomyolysis; J98.11 Atelectasis; Z20.822 Contact with and (suspected) exposure to COVID-19; E78.5 Hyperlipidemia, unspecified; F43.10 Post-traumatic stress disorder, unspecified; F03.90 Unspecified dementia, unspecified severity, without behavioral disturbance, psychotic disturbance, mood disturbance, and anxiety; F32.9 Major depressive disorder, single episode, unspecified; E83.52 Hypercalcemia; E87.6 Hypokalemia; I12.9 Hypertensive chronic kidney disease with stage 1 through stage 4 chronic kidney disease, or unspecified chronic kidney disease; Z96.611 Presence of right artificial shoulder joint; E83.41 Hypermagnesemia; N28.1 Cyst of kidney, acquired; N18.9 Chronic kidney disease, unspecified; L97.519 Non-pressure chronic ulcer of other part of right foot with unspecified severity; Y83.9 Surgical procedure, unspecified as the cause of abnormal reaction of the patient, or of later complication, without mention of misadventure at the time of the procedure; Z85.46 Personal history of malignant neoplasm of prostate; Z88.8 Allergy status to other drugs, medicaments and biological substances; Y92.89 Other specified places as the place of occurrence of the external cause; Z82.3 Family history of stroke; Z82.0 Family history of epilepsy and other diseases of the nervous system; Z80.42 Family history of malignant neoplasm of prostate; Z86.73 Personal history of transient ischemic attack (TIA), and cerebral infarction without residual deficits
CPT/HCPCS: 36415; 71045; 76770; 80048; 80053; 80202; 81001; 82550; 82553; 82803; 83605; 83735; 83880; 84100; 84484; 85025; 85610; 85730; 87040; 87070; 87075; 87081; 87086; 87186; 87205; 89220; 93005; 94640; 96365; 96367; 96375; 99291; J0696; J1644; J2185; J2543; J2930; J3370; J3480; J7060; Q0092